=== PATIENT | male | born 2000 | race Caucasian/White ===

== ENCOUNTER 2019-06-17 22:19 | Emergency (ER) | payer OTHER ==
[~2019-06-17] VITALS: Ht 175.3 cm; Wt 77.0 kg
[2019-06-17 22:23] VITALS: BP 161/94
[2019-06-17] MEDS ORDERED: sucralfate 1gm/10ml UD suspension PO SCH (22:35)
[2019-06-17] MEDS ORDERED: mag hydrox/Alum hydrox/simeth 30ml oral suspension PO ONE (22:35)
[2019-06-17] MEDS ORDERED: sucralfate 1gm/10ml UD suspension PO ONE (22:35)
[2019-06-17] MEDS ORDERED: famotidine 20mg tablet PO ONE (22:35)
[2019-06-17] MEDS ORDERED: LIDOcaine Viscous 15ml cup TP ONE (22:35)
[2019-06-17] MEDS ORDERED: metoclopramide 5 mg/ml inj IV ONE (23:55)
[2019-06-17] MEDS ORDERED: diphenhydrAMINE 50 mg/ml inj IV ONE (23:55)
[2019-06-18 00:42] LABS: ALANINE AMINOTRANSFERASE 28 U/L (12-78); ALBUMIN 4.5 G/DL (3.4-5.0); ALBUMIN/GLOBULIN RATIO 1.1 (1.1-1.5); ALKALINE PHOSPHATASE 65 IU/L (20-180); ANION GAP 10 (8-16); ASPARTATE AMINO TRANSFERASE 25 U/L (10-37); BILIRUBIN,TOTAL 0.7 MG/DL (0.1-1.0); BLOOD UREA NITROGEN 17 MG/DL (7-18); BUN/CREATININE RATIO 19.1 (5.4-32.0); CALCIUM 9.6 MG/DL (8.5-10.1); CHLORIDE 101 MMOL/L (99-107); CREATININE 0.89 MG/DL (0.60-1.10); GLUCOSE 93 MG/DL (70-104); LIPASE 92 U/L (73-393); POTASSIUM 3.7 MMOL/L (3.5-5.1); SODIUM 139 MMOL/L (135-145); TOTAL CARBON DIOXIDE 28.1 MMOL/L (24-32); TOTAL PROTEIN 8.7 G/DL (6.4-8.2); eGFR > 90 ML/MIN
[2019-06-18 00:45] LABS: BASOPHILS % (AUTO) 0.5 % (0-1); EOSINOPHILS # (AUTO) 0.1 X10'3 (0-0.9); HEMATOCRIT 46.4 % (42.0-52.0); HEMOGLOBIN 16.2 g/dl (14.0-17.9); LYMPHOCYTES # (AUTO) 2.3 X10'3 (1.1-4.8); LYMPHOCYTES % (AUTO) 28.9 % (21-51); MEAN CORPUSCULAR HEMOGLOBIN 31.6 PG (27.0-31.0); MEAN CORPUSCULAR VOLUME 90.3 FL (78-98); MONOCYTES # (AUTO) 0.8 X10'3 (0-0.9); MONOCYTES % (AUTO) 9.6 % (2-12); NEUTROPHILS # (AUTO) 4.7 X10'3 (1.8-7.7); PLATELET COUNT 269 X10'3 (140-440); RED BLOOD COUNT 5.14 X10'6 (4.70-6.10); RED CELL DISTRIBUTION WIDTH 12.6 % (11.5-14.5); WHITE BLOOD COUNT 7.9 X10'3 (4.5-11.0)
[2019-06-18] MEDS ORDERED: FAMO-128 PO (01:00)
[2019-06-18] MEDS ORDERED: ONDA4TAB6 PO (01:00)
== END 2019-06-18 01:15 | disposition home or self-care (01) ==
LOC: ER 22:20
DX: R12 Heartburn (principal); R11.2 Nausea with vomiting, unspecified; F41.9 Anxiety disorder, unspecified; R10.10 Upper abdominal pain, unspecified; F12.90 Cannabis use, unspecified, uncomplicated
CPT/HCPCS: 36415; 80053; 83690; 85025; 96374; 96375; 99284; J1200; J2765